=== PATIENT | male | born 1985 | race American Indian/Alaskan Native ===

== ENCOUNTER 2022-08-10 15:13 | Emergency (ER) | payer OTHER ==
[~2022-08-10] VITALS: Ht 177.8 cm; Wt 84.4 kg
== END 2022-08-10 17:57 | disposition home or self-care (01) ==
LOC: ED 15:13
DX: S01.21XA Laceration without foreign body of nose, initial encounter (principal); W50.0XXA Accidental hit or strike by another person, initial encounter; Z23 Encounter for immunization
CPT/HCPCS: 90715